=== PATIENT | female | born 1990 ===

== ENCOUNTER 2018-02-22 02:59 | Emergency (ER) | payer OTHER ==
[2018-02-22] MEDS ORDERED: Albuterol-Ipratrop 3 mg / 0.5 (3 ml) UD IH STA (03:31)
[2018-02-22] MEDS ORDERED: Albuterol-Ipratrop 3 mg / 0.5 (3 ml) UD ONE (03:36)
--- NOTE | 2018-02-22 03:36 | ED PDOC ---
HPI: CCC, URI, Sore Throat Time Seen by Provider: 02/22/18 03:19 Chief Complaint (Nursing): Flu-like Symptoms Chief Complaint (Provider): cough History Per: Patient History/Exam Limitations: no limitations Onset/Duration Of Symptoms: Days (3) Current Symptoms Are (Timing): Still Present Associated Symptoms: Sore Throat, Cough Additional Complaint(s): 27 y/o female presents for evaluation of persistent cough x 2 days. Associated tactile fevers x 5 days. Patient reports chest feeling "sore" from coughing. Denies headache, nausea/vomiting, shortness of breath, palpitations, abdominal pain, recent travel, sick contacts. No medications taken for relief within the last 2 days. Past Medical History Reviewed: Historical Data, Nursing Documentation, Vital Signs Vital Signs: Last Vital Signs Temp 99.5 F 02/22/18 03:17 Pulse 96 H 02/22/18 03:17 Resp 15 02/22/18 03:17 BP 121/75 02/22/18 03:17 Pulse Ox 100 02/22/18 04:20 - Medical History PMH: No Chronic Diseases - Surgical History Surgical History: No Surg Hx - Family History Family History: States: No Known Family Hx - Home Medications Home Medications: Ambulatory Orders Medication Instructions Recorded Albuterol HFA [Ventolin HFA 90 1 puff IH Q4 PRN #1 inh 02/22/18 mcg/actuation (8 g)] Levofloxacin [Levaquin] 750 mg PO DAILY #4 tablet 02/22/18 Promethazine HCl/Codeine 5 ml PO Q8 PRN #75 ml 02/22/18 [Promethazine-Codeine Syrup] - Allergies Allergies/Adverse Reactions: Allergies Allergy/AdvReac Type Severity Reaction Status Date / Time No Known Allergies Allergy Verified 02/22/18 03:19 Review of Systems ROS Statement: Except As Marked, All Systems Reviewed And Found Negative Constitutional: Positive for: Fever, Chills ENT: Positive for: Throat Pain Respiratory: Positive for: Cough Physical Exam - Reviewed Nursing Documentation Reviewed: Yes Vital Signs Reviewed: Yes - Physical Exam Appears: Positive for: Well, Non-toxic, No Acute Distress Head Exam: Positive for: ATRAUMATIC, NORMAL INSPECTION, NORMOCEPHALIC Skin: Positive for: Normal Color Eye Exam: Positive for: Normal appearance ENT: Positive for: Normal ENT Inspection Cardiovascular/Chest: Positive for: Regular Rate, Rhythm Respiratory: Positive for: Normal Breath Sounds Gastrointestinal/Abdominal: Positive for: Normal Exam Back: Positive for: Normal Inspection Extremity: Positive for: Normal ROM Neurologic/Psych: Positive for: Alert, Oriented (x3) - ECG O2 Sat by Pulse Oximetry: 100 Pulse Ox Interpretation: Normal - Radiology X-Ray: Viewed By Ga X-Ray Interpretation: Infiltrates (LLL) - Progress ED Course And Treament: flu, strep, chest xray, duoneb, ibuprofen On re-eval, patient states cough improved Vitals remain stable Patient educated on findings, discharged with rx Levaquin (dose given in ED), Albuterol HFA, Promethazine with codeine Advised fluids. Rest Follow up PMD 2-3 days Return precautions given Patient demonstrates full understanding of discharge instructions Patient requires no further intervention in the ED and is stable for discharge at this time. Disposition - Clinical Impression Clinical Impression: Pneumonia Counseled Patient/Family Regarding: Studies Performed, Diagnosis, Need For Followup, Rx Given - Disposition Referrals: [facility] [Outside] Disposition: Routine/Home Disposition Time: 05:03 Condition: IMPROVED Prescriptions: Albuterol HFA [Ventolin HFA 90 mcg/actuation (8 g)] 1 puff IH Q4 PRN #1 inh PRN Reason: Wheezing Levofloxacin [Levaquin] 750 mg PO DAILY #4 tablet Promethazine HCl/Codeine [Promethazine-Codeine Syrup] 5 ml PO Q8 PRN #75 ml PRN Reason: Cough Instructions: Pneumonia in Adults Forms: [facility] (Citizen Of [place])
[2018-02-22] MEDS ORDERED: levoFLOXacin 750 MG TAB PO STA (04:17)
[2018-02-22 05:28] VITALS: BP 110/60; PULSE 97; RESP 16; TEMP 98.6; O2SAT 99
--- NOTE | 2018-02-22 08:57 | RAD ---
Date of service: 02/22/2018 HISTORY: cough COMPARISON: No prior. TECHNIQUE: Chest PA and lateral FINDINGS: LUNGS: A coalescent airspace opacity left lower lobe posterior segment is compatible with the infiltrates/pneumonia. PLEURA: A trace left pleural effusion is suggested No pneumothorax apparent. CARDIOVASCULAR: Normal. OSSEOUS STRUCTURES: No significant abnormalities. VISUALIZED UPPER ABDOMEN: Normal. OTHER FINDINGS: None. IMPRESSION: Left lower lobe infiltrate with trace left pleural effusion follow-up to resolution recommended Concordant results (preliminary interpretation) provided by [facility].
== END 2018-02-22 05:15 | disposition home or self-care (01) ==
LOC: H.ER 02:59
DX: J18.9 Pneumonia, unspecified organism (principal)